=== PATIENT | female | born 1950 | race African-American/Black ===

== ENCOUNTER 2016-08-24 17:56 | Emergency (ER) | payer MEDICARE, MEDICAID ==
[~2016-08-24] VITALS: Ht 144.8 cm; Wt 63.0 kg
[~2016-08-24 17:56] MED LIST: AMLO10TA4 PO; CLONIDINE; DOCU100C21 PO; GABA-290 PO; HYDR-3933 PO; HYDR4TAB23 PO; LEVO100T12 PO; LEVO100V4 IV; LORA-250 PO; METHADONE; OMEP40CA PO; OMEP40CA34 PO; OXYCODONE; POTA8TAB4 PO; TRAZODONE; VALS320T9 PO
[2016-08-24] MEDS ORDERED: KETOROLAC 60MG/2ML VIAL IM ONE (19:00)
[2016-08-24 20:00] VITALS: BP 120/85
== END 2016-08-24 20:00 | disposition home or self-care (01) ==
LOC: ER 19:36
DX: G89.29 Other chronic pain (principal); M54.9 Dorsalgia, unspecified; I10 Essential (primary) hypertension; Z90.49 Acquired absence of other specified parts of digestive tract; Z79.899 Other long term (current) drug therapy; Z86.12 Personal history of poliomyelitis
CPT/HCPCS: 96372; 99283; J1885

== ENCOUNTER 2017-12-19 16:02 | Emergency (ER) | payer OTHER, MEDICAID ==
[~2017-12-19] VITALS: Ht 162.6 cm; Wt 80.0 kg
[~2017-12-19 16:02] MED LIST changes: -HYDR-3933 PO; +HYDR-4009 PO; -HYDR4TAB23 PO; +HYDR4TAB4 PO; +VALS320T2 PO; -VALS320T9 PO
[2017-12-19] MEDS ORDERED: ACETAMINOPHEN 650MG/20.3ML UDC PO ONE (19:45)
[2017-12-19] MEDS ORDERED: IBUPROFEN 600MG TABLET PO ONE (19:45)
[2017-12-19] MEDS ORDERED: KETOROLAC 60MG/2ML VIAL IM ONE (20:15)
[2017-12-19 20:36] VITALS: BP 145/79
== END 2017-12-19 21:08 | disposition home or self-care (01) ==
LOC: ER 16:02
DX: G89.29 Other chronic pain (principal); Z86.12 Personal history of poliomyelitis; I10 Essential (primary) hypertension; F12.90 Cannabis use, unspecified, uncomplicated; Z79.899 Other long term (current) drug therapy
CPT/HCPCS: 96372; 99283; J1885

== ENCOUNTER 2023-04-28 09:26 | Emergency (ER) | payer MEDICARE, MEDICAID ==
[~2023-04-28] VITALS: Ht 149.9 cm; Wt 77.0 kg
[~2023-04-28 09:26] MED LIST changes: +DOCU-276 PO; -DOCU100C21 PO; +OMEP40CA20 PO; -OMEP40CA34 PO; -POTA8TAB4 PO; +POTA8TAB70 PO
[2023-04-28 09:43] VITALS: PULSE 105; RESP 16
[2023-04-28 09:50] VITALS: BP 142/79; TEMP 98.6; O2SAT 98
[2023-04-28] MEDS ORDERED: TOPUD MT (11:31)
== END 2023-04-28 11:55 | disposition home or self-care (01) ==
LOC: ER 09:26
DX: I10 Essential (primary) hypertension (principal); F12.90 Cannabis use, unspecified, uncomplicated; Z90.49 Acquired absence of other specified parts of digestive tract; Z90.89 Acquired absence of other organs; Z98.890 Other specified postprocedural states; G89.29 Other chronic pain
CPT/HCPCS: 99282

== ENCOUNTER 2023-06-15 09:55 | Emergency (ER) | payer MEDICARE, MEDICAID ==
[~2023-06-15] VITALS: Ht 152.4 cm; Wt 90.0 kg
[~2023-06-15 09:55] MED LIST changes: +TOPUD MT
[2023-06-15 10:01] VITALS: BP 128/77; RESP 20; TEMP 98.2; O2SAT 97
[2023-06-15 10:02] VITALS: PULSE 89
[2023-06-15] MEDS: KETOROLAC 30MG/ML VIAL IM ONE (10:30)
[2023-06-15] MEDS: HYDROCODONE/ACETAMINOPHEN 5/325MG TABLET PO ONE (10:31)
== END 2023-06-15 10:47 | disposition home or self-care (01) ==
LOC: ER 10:07
DX: G89.29 Other chronic pain (principal); F12.10 Cannabis abuse, uncomplicated; Z79.899 Other long term (current) drug therapy; Z98.890 Other specified postprocedural states; Z90.49 Acquired absence of other specified parts of digestive tract; Z90.89 Acquired absence of other organs; Z86.12 Personal history of poliomyelitis
CPT/HCPCS: 99283; 96372; J1885

== ENCOUNTER 2023-08-23 12:47 | Emergency (ER) | payer MEDICARE, MEDICAID ==
[~2023-08-23] VITALS: Ht 144.8 cm; Wt 77.0 kg
[2023-08-23 12:58] VITALS: O2SAT 98
[2023-08-23] MEDS: HYDROCODONE/ACETAMINOPHEN 5/325MG TABLET PO ONE (14:37)
[2023-08-23] MEDS ORDERED: OXYC-93 MT (17:08)
[2023-08-23 17:25] VITALS: BP 144/69; PULSE 68; RESP 20; TEMP 98.2
== END 2023-08-23 17:26 | disposition home or self-care (01) ==
LOC: ER 12:54
DX: M25.512 Pain in left shoulder (principal); W18.30XA Fall on same level, unspecified, initial encounter; I10 Essential (primary) hypertension; F12.10 Cannabis abuse, uncomplicated; Z79.899 Other long term (current) drug therapy; Z98.890 Other specified postprocedural states; Z86.73 Personal history of transient ischemic attack (TIA), and cerebral infarction without residual deficits; Z86.39 Personal history of other endocrine, nutritional and metabolic disease; Z90.49 Acquired absence of other specified parts of digestive tract; Z90.89 Acquired absence of other organs; Y93.89 Activity, other specified; Y92.89 Other specified places as the place of occurrence of the external cause; Y99.8 Other external cause status
CPT/HCPCS: 73060; 99284

== ENCOUNTER 2023-10-11 09:09 | Emergency (ER) | payer MEDICARE, MEDICAID ==
[~2023-10-11] VITALS: Ht 160 cm; Wt 72.0 kg
[~2023-10-11 09:09] MED LIST changes: +OXYC-93 MT
[2023-10-11 09:22] VITALS: O2SAT 97
[2023-10-11] MEDS: HYDROCODONE/ACETAMINOPHEN 5/325MG TABLET PO ONE (11:15)
[2023-10-11] MEDS: CLONIDINE 0.1MG TABLET PO ONE (11:15)
[2023-10-11] MEDS ORDERED: LOSA25TA26 MT (12:08)
[2023-10-11 12:24] VITALS: BP 157/83; PULSE 75; RESP 18; TEMP 98.5
== END 2023-10-11 12:28 | disposition home or self-care (01) ==
LOC: ER 09:09
DX: I10 Essential (primary) hypertension (principal); Z79.899 Other long term (current) drug therapy; Z98.890 Other specified postprocedural states; Z90.49 Acquired absence of other specified parts of digestive tract
CPT/HCPCS: 99283

== ENCOUNTER 2024-01-28 10:01 | Emergency (ER) | payer MEDICARE, MEDICAID ==
[~2024-01-28] VITALS: Ht 144.8 cm; Wt 68.0 kg
[~2024-01-28 10:01] MED LIST changes: +LOSA25TA26 MT
[2024-01-28 10:04] VITALS: O2SAT 100
[2024-01-28 10:07] VITALS: BP 146/76; PULSE 72; RESP 18; TEMP 98; O2SAT 100
[2024-01-28 10:36] LABS: BASOPHILS % 0.6 % (0.0-2.0); EOSINOPHILS % 0.2 % (0.0-5.0); HEMOGLOBIN. 13.3 g/dL (12.0-16.0); LYMPHOCYTES % 25.5 % (20.0-50.0); MEAN CORPUSCULAR HEMOGLOBIN 27.4 pg (28.0-32.0); MEAN CORPUSCULAR HGB CONC 31.7 g/dL (31.0-37.0); MEAN CORPUSCULAR VOLUME 86.6 fL (81.0-99.0); MEAN PLATELET VOLUME 7.5 fl (7.4-10.4); MONOCYTES % 5.9 % (2.0-8.0); NEUTROPHILS % 67.8 % (40.0-76.0); PLATELET 322 x1000/uL (130-400); RED BLOOD CELL COUNT 4.85 mill/uL (4.2-5.4); RED CELL DISTRIBUTION WIDTH 15.1 % (11.6-14.6); WHITE BLOOD COUNT 7.9 x1000/uL (4.5-11.0)
[2024-01-28 10:43] LABS: CHLORIDE 107 mEq/L (98-107); POTASSIUM 3.8 mEq/L (3.5-5.1); SODIUM 141 mEq/L (136-145)
[2024-01-28 10:44] LABS: CALCIUM 9.5 mg/dL (8.7-10.4); CARBON DIOXIDE 29 mEq/L (21-32)
[2024-01-28 10:49] LABS: CREATININE 0.6 mg/dL (0.6-1.0); GLUCOSE 106 mg/dL (70-105); UREA NITROGEN BLOOD 11 mg/dL (9-23)
[2024-01-28 10:50] LABS: TROPONIN I HIGH SENSITIVITY 5 ng/L (3.0-34)
[2024-01-28 10:51] LABS: ALANINE AMINOTRANSFERASE 14 IU/L (10-49); ALBUMIN 4.1 g/dL (3.2-4.8); ASPARTATE AMINOTRANSFERASE 15 IU/L (<34); BILIRUBIN DIRECT 0.1 mg/dL (<=3.0); BILIRUBIN TOTAL 0.5 mg/dL (0.1-1.0); PROTEIN TOTAL 7.1 g/dL (6.0-8.3)
[2024-01-28 12:10] LABS: CLARITY URINE CLOUDY (CLEAR); COLOR URINE YELLOW (YELLOW); GLUCOSE URINE NEGATIVE (NEGATIVE); KETONES URINE NEGATIVE (NEGATIVE); LEUKOCYTE ESTERASE URINE TRACE (NEGATIVE); NITRITE URINE NEGATIVE (NEGATIVE); OCCULT BLOOD URINE 3+ (NEGATIVE); PROTEIN URINE TRACE (NEGATIVE); SPECIFIC GRAVITY URINE 1.016 (1.005-1.030)
[2024-01-28 12:33] LABS: BACTERIA URINE 1+; RBC URINE 25-50 /hpf (0-2); SQUAMOUS EPITHELIAL CELL URINE 1+ /lpf (RARE/1+); WBC URINE NONE SEEN /hpf (0-2); YEAST URINE NONE SEEN
[2024-01-28 12:34] LABS: CALCIUM OXALATE CRYSTALS URINE 3+ /lpf
== END 2024-01-28 16:01 | disposition home or self-care (01) ==
LOC: ER 10:25
DX: K59.00 Constipation, unspecified (principal); F12.90 Cannabis use, unspecified, uncomplicated; I10 Essential (primary) hypertension; E03.9 Hypothyroidism, unspecified; Z90.49 Acquired absence of other specified parts of digestive tract; Z90.89 Acquired absence of other organs; Z98.890 Other specified postprocedural states; Z79.899 Other long term (current) drug therapy
CPT/HCPCS: 36415; 74176; 80048; 80076; 81003; 84484; 85025; 93005; 99284

== ENCOUNTER 2024-02-12 09:05 | Emergency (ER) | payer MEDICARE, MEDICAID ==
[~2024-02-12] VITALS: Ht 152.4 cm; Wt 59.0 kg
[2024-02-12 09:09] VITALS: O2SAT 97
[2024-02-12] MEDS ORDERED: OXYCODONE HCL/ACETAMINOPHEN 5/325MG TABLET PO ONE (10:00)
[2024-02-12] MEDS ORDERED: FAMOTIDINE 20MG TABLET PO ONE (10:00)
[2024-02-12 10:25] LABS: BASOPHILS % 0.9 % (0.0-2.0); EOSINOPHILS % 0.2 % (0.0-5.0); HEMATOCRIT. 43.2 % (36.0-48.0); HEMOGLOBIN. 13.8 g/dL (12.0-16.0); MEAN CORPUSCULAR HEMOGLOBIN 27.5 pg (28.0-32.0); MEAN CORPUSCULAR HGB CONC 31.9 g/dL (31.0-37.0); MEAN CORPUSCULAR VOLUME 86.2 fL (81.0-99.0); MEAN PLATELET VOLUME 7.3 fl (7.4-10.4); MONOCYTES % 5.5 % (2.0-8.0); NEUTROPHILS % 69.4 % (40.0-76.0); PLATELET 368 x1000/uL (130-400); RED BLOOD CELL COUNT 5.01 mill/uL (4.2-5.4); RED CELL DISTRIBUTION WIDTH 14.9 % (11.6-14.6); WHITE BLOOD COUNT 6.5 x1000/uL (4.5-11.0)
[2024-02-12 10:30] LABS: CALCIUM 9.6 mg/dL (8.7-10.4); CARBON DIOXIDE 25 mEq/L (21-32); CHLORIDE 110 mEq/L (98-107); POTASSIUM 3.6 mEq/L (3.5-5.1); SODIUM 140 mEq/L (136-145)
[2024-02-12 10:35] LABS: CREATININE 0.7 mg/dL (0.6-1.0)
[2024-02-12 10:36] LABS: GLUCOSE 111 mg/dL (70-105); UREA NITROGEN BLOOD 10 mg/dL (9-23)
[2024-02-12 10:37] LABS: ALANINE AMINOTRANSFERASE 11 IU/L (10-49); ALBUMIN 4.2 g/dL (3.2-4.8); ASPARTATE AMINOTRANSFERASE 20 IU/L (<34); BILIRUBIN DIRECT 0.2 mg/dL (<=3.0)
[2024-02-12 10:38] LABS: PROTEIN TOTAL 7.6 g/dL (6.0-8.3)
[2024-02-12] MEDS: FAMOTIDINE 20MG TABLET PO NR (11:41)
[2024-02-12] MEDS: OXYCODONE HCL/ACETAMINOPHEN 5/325MG TABLET PO NR (11:41)
[2024-02-12 12:24] VITALS: BP 155/88; PULSE 77; RESP 17; TEMP 37.11408; O2SAT 97
== END 2024-02-12 12:42 | disposition home or self-care (01) ==
LOC: ER 09:17
DX: R10.9 Unspecified abdominal pain (principal); E03.9 Hypothyroidism, unspecified; E78.5 Hyperlipidemia, unspecified; F32.A Depression, unspecified; F12.90 Cannabis use, unspecified, uncomplicated; I10 Essential (primary) hypertension; Z90.89 Acquired absence of other organs; Z90.49 Acquired absence of other specified parts of digestive tract; Z79.899 Other long term (current) drug therapy
CPT/HCPCS: 36415; 74176; 80048; 80076; 85025; 99284